=== PATIENT | female | born 1985 | race Caucasian/White ===

== ENCOUNTER 2018-12-09 20:04 | Emergency (ER) | payer BC ==
[~2018-12-09] VITALS: Ht 160 cm; Wt 88.0 kg
[2018-12-09] MEDS ORDERED: ACETAMIN/BUTALBITAL/CAFFEINE TAB PO ONE (21:15)
[2018-12-09] MEDS ORDERED: ACETAMIN/BUTALBITAL/CAFFEINE TAB ONE (21:19)
== END 2018-12-09 21:30 | disposition home or self-care (01) ==
LOC: ER 20:04
DX: S06.0X0A Concussion without loss of consciousness, initial encounter (principal); W01.0XXA Fall on same level from slipping, tripping and stumbling without subsequent striking against object, initial encounter; Y93.K1 Activity, walking an animal; Y92.89 Other specified places as the place of occurrence of the external cause